=== PATIENT | male | born 1970 | race Caucasian/White ===

== ENCOUNTER 2021-01-11 07:45 | Observation (INO) | payer BC ==
--- NOTE | 2021-01-11 09:07 | ER ---
Nurse's Notes [facility] Name: Ty Delatorre Age: 50 yrs Sex: Male : 1970 Arrival Date: 01/11/2021 Time: 07:49 Bed 14 Private MD: Diagnosis: Cellulitis of left lower limb Presentation: 01/11 08:46 Chief complaint: Patient states: left leg swelling and redness since Sunday, was seen iw at [facility] on Sunday and given IV abx and sent home with bactrim and amoxicillin, leg looks worse now, US was neg for DVT at [facility]. Coronavirus screen: At this time, the client does not indicate any symptoms associated with coronavirus-19. Ebola Screen: Patient negative for fever greater than or equal to 101.5 degrees Fahrenheit, and additional compatible Ebola Virus Disease symptoms Patient denies exposure to infectious person. Patient denies travel to an Ebola-affected area in the 21 days before illness onset. No symptoms or risks identified at this time. Initial Sepsis Screen: Does the patient meet any 2 criteria? No. Patient's initial sepsis screen is negative. Does the patient have a suspected source of infection? No. Patient's initial sepsis screen is negative. Risk Assessment: Do you want to hurt yourself or someone else? Patient reports no desire to harm self or others. Onset of symptoms was January 08, 2021. 08:46 Method Of Arrival: Ambulatory iw 08:46 Acuity: JOSE 3 iw Historical: - Allergies: 08:49 No Known Allergies; iw - Home Meds: 08:49 Bystolic oral [Active]; Accupril Oral [Active]; pravastatin oral [Active]; iw - PMHx: 08:49 Hypertensive disorder; iw - PSHx: 08:49 knee; iw Screenin:07 Abuse screen: Denies threats or abuse. Nutritional screening: No deficits noted. 6 Tuberculosis screening: No symptoms or risk factors identified. Fall Risk None identified. Assessment: 09:03 General: Appears in no apparent distress. comfortable, obese, well developed, well 6 nourished, Behavior is calm, cooperative. Pain: Denies pain. Derm: Wound noted left nelson Pt reports after receiving third Covid shot. Pt woke up with redness swelling and pain to lle starting 4 days ago. Pt has been on antibiotics and antiinflammatories but have not decreased s/s. 10:36 Reassessment: No changes from previously documented assessment. jh6 12:00 Reassessment: Patient and/or family updated on plan of care and expected duration. Pain jh6 level reassessed. Patient denies pain at this time. Patient states feeling better. redness and swelling still noted to l lower ext but no pain when asked.. Vital Signs: 09:00 BP 110 / 72; Pulse 78; Resp 16; Temp 98.2; Pulse Ox 99% on R/A; kj1 10:36 BP 110 / 82; Pulse 76; Resp 17; Temp 98.0(O); Pulse Ox 100% ; Pain 0/10; jh6 12:00 BP 112 / 80; Pulse 77; Resp 17; Pulse Ox 100% ; jh6 14:05 BP 116 / 54; Pulse 74; Resp 17; Temp 97.8; Pulse Ox 99% ; Pain 0/10; jh6 ED Course: 07:49 Patient arrived in ED. rg4 07:53 Raulito Downs MD is Attending Physician. kdr 08:49 Triage completed. iw 08:55 Adriane Nichols, MARGARITO is Primary Nurse. jh6 09:04 Ernie Madrid is Hospitalizing Provider. kdr 09:06 Patient has correct armband on for positive identification. Bed in low position. Call [facility] light in reach. Side rails up X 1. 09:07 No provider procedures requiring assistance completed. jh6 09:24 Inserted saline lock: 20 gauge in left forearm, using aseptic technique. tp1 09:28 Patient moved to radiology. jh6 09:28 Inserted saline lock: 20 gauge in left forearm, using aseptic technique. jh6 09:28 US Extremity Venous Unilateral Ltd Sent. jh6 09:29 Blood Culture Adult (2) Sent. jh6 09:29 Chem 7 Sent. jh6 09:29 CBC with Diff Sent. jh6 09:30 US Extremity Venous Unilateral Ltd In Process Unspecified. EDMS 10:32 SARS-COV-2 RT PCR (Document "Date of Onset" if Symptomatic) Sent. jh6 Administered Medications: 13:54 Discontinued: NS 0.9% 500 ml IV at bolus once jh6 09:45 Drug: Zofran (Ondansetron) 4 mg Route: IVP; Site: left forearm; jh6 09:45 Drug: Cefepime 2 grams Route: IVPB; Rate: 200 ml/hr; Infused Over: 30 mins; Site: left [facility] forearm; 10:34 Follow up: Response: No adverse reaction [facility] 12:00 Follow up: Response: No adverse reaction [facility] 09:50 Drug: NS 0.9% 500 ml Route: IV; Rate: bolus; Site: left forearm; [facility] 10:33 Follow up: IV Status: Completed infusion; IV Intake: 500ml [facility] 13:54 Follow up: IV Status: Completed infusion; IV Intake: 500ml [facility] 10:25 Drug: vancoMYCIN 1.5 grams Route: IVPB; Rate: calculated rate; Site: left forearm; [facility] 11:44 Drug: Pepcid (famotidine) 20 mg Route: IVP; Site: left forearm; [facility] 13:54 Follow up: Response: No adverse reaction [facility] Intake: 10:33 IV: 500ml; Total: 500ml. [facility] 13:54 IV: 500ml; Total: 1000ml. [facility] Outcome: 09:05 Decision to Hospitalize by Provider. [facility] 15:07 Patient left the ED. aa5 Signatures: Dispatcher [employer] EDMS Raulito Downs MD MD kdr Williams, Irene, RN RN iw Calderon, Audri, RN RN yemi5 Mahnaz Hutchison Kandis kj1 Adriane Nichols RN RN jh6 Teresa Willis tp1
--- NOTE | 2021-01-11 09:07 | EDPHYS ---
Physician Documentation [facility] Name: Ty Delatorre Age: 50 yrs Sex: Male : 1970 Arrival Date: 01/11/2021 Time: 07:49 Bed 14 Private MD: ED Physician Raulito Downs HPI: 01/11 08:52 This 50 yrs old Male presents to ER via Ambulatory with complaints of Leg kdr Swelling. 08:52 The patient presents with pain, that is acute, swelling, tenderness, Erythema and kdr warmth to the calf circumferentially. The complaints affect the lateral aspect of left calf, left lateral ankle, left calf, left Achilles, medial aspect of left calf, left medial ankle and left nelson. Context: The problem was sustained at home, resulted from an unknown cause, the patient can fully bear weight, the patient is able to ambulate. Onset: The symptoms/episode began/occurred gradually, 3 day(s) ago. Modifying factors: The symptoms are alleviated by nothing. the symptoms are aggravated by movement, weight bearing. Associated signs and symptoms: Pertinent positives: calf tenderness, fever, nausea, swelling, warmth. Treatment prior to arrival includes: Patient was seen at [facility] on Sunday and given antibiotics (amoxicillin and Bactrim). Since then the erythema and warmth and swelling have worsened.. Severity of symptoms: At their worst the symptoms were mild, moderate, just prior to arrival, in the emergency department the symptoms are unchanged. The patient has not experienced similar symptoms in the past. The patient has been recently seen by a physician: [facility]. Historical: - Allergies: 08:49 No Known Allergies; iw - Home Meds: 08:49 Bystolic oral [Active]; Accupril Oral [Active]; pravastatin oral [Active]; iw - PMHx: 08:49 Hypertensive disorder; iw - PSHx: 08:49 knee; iw ROS: 08:52 Constitutional: Negative for weight loss -he has had fever and chills to 103 over the kdr weekend Eyes: Negative for injury, pain, redness, and discharge, Neck: Negative for injury, pain, and swelling, Cardiovascular: Negative for chest pain, palpitations, and edema, Respiratory: Negative for shortness of breath, cough, wheezing, and pleuritic chest pain, Back: Negative for injury and pain, : Negative for injury, bleeding, discharge, and swelling, MS/Extremity: Negative for injury and deformity, Neuro: Negative for headache, weakness, numbness, tingling, and seizure activity. Psych: Negative for depression, anxiety, suicide ideation, homicidal ideation, and hallucinations, Allergy/Immunology: Negative for hives, rash, and allergies, Endocrine: Negative for neck swelling, polydipsia, polyuria, polyphagia, and marked weight changes, Hematologic/Lymphatic: Negative for swollen nodes, abnormal bleeding, and unusual bruising. 08:52 Abdomen/GI: Positive for nausea, Negative for vomiting, diarrhea, constipation, abdominal cramps, abdominal distension, black/tarry stool, rectal pain, rectal bleeding, bowel incontinence. Exam: 08:52 Constitutional: This is a well developed, well nourished patient who is awake, alert, kdr and in no acute distress. Head/Face: Normocephalic, atraumatic. Eyes: Pupils equal round and reactive to light, extra-ocular motions intact. Lids and lashes normal. Conjunctiva and sclera are non-icteric and not injected. Cornea within normal limits. Periorbital areas with no swelling, redness, or edema. Chest/axilla: Normal chest wall appearance and motion. Nontender with no deformity. No lesions are appreciated. 08:52 Skin: cellulitis, that is moderate, confluent, well demarcated, on the lateral aspect of left calf, left calf, medial aspect of left calf and left nelson. Vital Signs: 09:00 BP 110 / 72; Pulse 78; Resp 16; Temp 98.2; Pulse Ox 99% on R/A; kj1 10:36 BP 110 / 82; Pulse 76; Resp 17; Temp 98.0(O); Pulse Ox 100% ; Pain 0/10; jh6 12:00 BP 112 / 80; Pulse 77; Resp 17; Pulse Ox 100% ; jh6 14:05 BP 116 / 54; Pulse 74; Resp 17; Temp 97.8; Pulse Ox 99% ; Pain 0/10; jh6 MDM: 08:52 Data reviewed: vital signs, nurses notes, lab test result(s), radiologic studies. kdr Counseling: I had a detailed discussion with the patient and/or guardian regarding: the historical points, exam findings, and any diagnostic results supporting the discharge/admit diagnosis, lab results, radiology results, the need for further work-up and treatment in the hospital. 09:05 Patient medically screened. [facility] 01/11 08:51 Order name: CBC with Diff; Complete Time: 09:50 kdr 01/11 08:51 Order name: Chem 7; Complete Time: 09:50 kdr 01/11 08:51 Order name: Blood Culture Adult (2) kdr 01/11 09:12 Order name: SARS-COV-2 RT PCR (Document "Date of Onset" if Symptomatic) 01/11 11:42 Order name: C-Reactive Protein EDLA 01/11 11:42 Order name: Procalcitonin EDLA 01/11 08:51 Order name: US Extremity Venous Unilateral Ltd; Complete Time: 10:47 [facility] 01/11 11:39 Order name: CONS Physician Consult EDLA 01/11 11:42 Order name: Sedimentation Rate, [place] EDLA Administered Medications: 13:54 Discontinued: NS 0.9% 500 ml IV at bolus once [facility] 09:45 Drug: Zofran (Ondansetron) 4 mg Route: IVP; Site: left forearm; [facility] 09:45 Drug: Cefepime 2 grams Route: IVPB; Rate: 200 ml/hr; Infused Over: 30 mins; Site: left [facility] forearm; 10:34 Follow up: Response: No adverse reaction [facility] 12:00 Follow up: Response: No adverse reaction [facility] 09:50 Drug: NS 0.9% 500 ml Route: IV; Rate: bolus; Site: left forearm; [facility] 10:33 Follow up: IV Status: Completed infusion; IV Intake: 500ml [facility] 13:54 Follow up: IV Status: Completed infusion; IV Intake: 500ml [facility] 10:25 Drug: vancoMYCIN 1.5 grams Route: IVPB; Rate: calculated rate; Site: left forearm; [facility] 11:44 Drug: Pepcid (famotidine) 20 mg Route: IVP; Site: left forearm; [facility] 13:54 Follow up: Response: No adverse reaction [facility] Disposition Summary: 01/11/21 09:05 Hospitalization Ordered Hospitalization Status: Inpatient Admission kdr Provider: Ernie Madrid Location: Telemetry/MedSurg (Inpatient) kdr Condition: Fair kdr Problem: an ongoing problem kdr Symptoms: are unchanged kdr Bed/Room Type: Standard kdr Room Assignment: [facility](01/11/21 13:19) dw Diagnosis - Cellulitis of left lower limb kdr Forms: - Medication Reconciliation Form kdr - SBAR form kdr Signatures: Dispatcher [employer] Veronika Vu RN RN dw Raulito Downs MD MD kdr Williams, Irene, RN RN Adriane Nichols RN RN jh6 Corrections: (The following items were deleted from the chart) 13:19 09:05 kdr dw
[2021-01-11] MEDS ORDERED: CEFEPIME 1 GM/VIAL ONE (09:10)
[2021-01-11] MEDS ORDERED: ONDANSETRON 4 MG/2 ML VIAL ONE (09:10)
[2021-01-11] MEDS ORDERED: NA CHLORIDE 0.9% 250 ML ONE (09:11)
[2021-01-11] MEDS ORDERED: VANCOMYCIN 1 GM/VIAL ONE (09:11)
[2021-01-11] MEDS ORDERED: NA CHLORIDE 0.9% 100 ML ONE (09:11)
[2021-01-11] MEDS ORDERED: NA CHLORIDE 0.9% 500 ML ONE (09:11)
[2021-01-11 09:30] LABS: Absolute Lymphocytes (CBC) 1.1 K/uL (0.7-4.9); Basophils % 0.4 % (0-1.3); Hematocrit 39.1 % (39.6-49.0); Lymphocytes % 11.6 % (15.3-44.8); MPV 8.6 fL (7.6-11.3); RBC Red Blood Cell Count 4.29 M/uL (4.33-5.43)
[2021-01-11 09:48] LABS: Potassium 3.7 mmol/L (3.5-5.1)
--- NOTE | 2021-01-11 10:03 | RAD REPORT ---
EXAM DESCRIPTION: USExtremity Venous Uni Ltd01/11/2021 9:30 am CLINICAL HISTORY: left leg pain and swelling. COMPARISON: None. FINDINGS: Left common femoral, superficial femoral, popliteal and posterior tibial veins are compre ssible and demonstrate augmentation. Doppler demonstrates good flow. IMPRESSION: No evidence of deep venous thrombosis involving the left lower extremity.
[2021-01-11] MEDS ORDERED: FAMOTIDINE 20 MG/2 ML VIAL IV ONE (11:38)
--- NOTE | 2021-01-11 11:41 | P.HP ---
Certification for Inpatient Patient admitted to: Inpatient With expected LOS: >2 Midnights Practitioner: I am a practitioner with admitting privileges, knowledge of patient current condition, hospital course, and medical plan of care. Services: Services provided to patient in accordance with Admission requirements found in Title 42 Section 412.3 of the Code of Federal Regulations Patient History Date of Service: 01/11/21 Reason for admission: LLE cellulitis, failed outpatient therapy History of Present Illness: 50-year-old male, PMH: Hypertension, hypertriglyceridemia presents to ED due to worsening of his left lower extremity cellulitis. He first noticed some redness and pain of his left leg ~3-4 days ago. He presented to [facility], was given IV vancomycin & "antibiotic pills", discharged home with Augmentin and Bactrim. Patient received antibiotics for 48 hours, still had worsening of his swelling, redness, and pain. Pain is described as a dull ache most times, but feels like his foot/leg is on fire when he moves. He reports fever at home to 103.5. Both the fever and the cellulitis occurred the day following his booster COVID vaccine. In the ED, patient is without leukocytosis, afebrile at this time, with some noticeable discomfort, and significant erythema and swelling of his left lower extremity. Venous Doppler was negative for DVT. Patient is admitted for treatment for failed outpatient therapy of cellulitis. Allergies No Known Allergies Allergy (Unverified 01/11/21 12:34) Home Medications: Amoxicillin/Potassium Clav [Amox-Clav 875-125 mg Tablet] 1 tab PO Q12H 01/11/21 Aspirin [Aspirin EC] 1 tab PO DAILY 01/11/21 Naproxen Sodium 1 tab PO Q12H PRN 01/11/21 Nebivolol HCl [Bystolic*] 1 tab PO DAILY 01/11/21 [place]-3 Acid Ethyl Esters [Lovaza] 4 gm PO DAILY 01/11/21 Pravastatin Sodium 1 tab PO DAILY 01/11/21 Quinapril HCl [Accupril] 1 tab PO DAILY 01/11/21 Smz./Tmp. [Bactrim Ds 800 MG/160 MG*] 1 tab PO Q12H 01/11/21 - Past Medical/Surgical History -: Hypertension -: Hypertriglyceridemia Past Surgical History: Patient denies surgical history - Family History Father -: Diabetes - Social History Smoking Status: Never smoker Alcohol use: Yes Place of Residence: Home Review of Systems 10-point ROS is otherwise unremarkable Physical Examination - Physical Exam General: Alert, Oriented x3, Other (Appears somewhat uncomfortable) HEENT: PERRLA, Mucous membr. moist/pink, Sclerae nonicteric Neck: No LAD Respiratory: Clear to auscultation bilaterally, Normal air movement Cardiovascular: Regular rate/rhythm, No murmurs, Edema (1+ LLE) Gastrointestinal: Soft and benign, Non-distended, No tenderness Integumentary: Tenderness/swelling (LLE: dorsum of foot to knee), Erythema Neurological: Normal speech, Normal affect - Studies Laboratory Data (last 24 hrs) 01/11/21 09:15: Sodium 138, Potassium 3.7, BUN 23 H, Creatinine 1.80 H, Glucose 134 H 01/11/21 09:15: WBC 9.10, Hgb 13.4 L, Hct 39.1 L, Plt Count 211 Assessment and Plan - Advance Directives Does patient have a Living Will: No Does patient have a Durable POA for Healthcare: No Physician Review Additional Text: Problem List LLE Cellulitis HTN Hypertriglyceridemia Suspect GERSON on CKD, unknown stage Patient failed outpatient therapy with Augmentin and Bactrim. Did receive 1 dose of IV vancomycin at [facility] ER 2 days ago. Patient given vancomycin and cefepime in the ER here Patient does not appear septic, but with impressive erythema and tenderness. No significant anterior left lower extremity. Admit to hospital for IV antibiotics given that he failed outpatient therapy Infectious disease consulted, recommends IV clindamycin Check CRP/procalcitonin Monitor labs Creatinine 1.8, patient states he has been told his creatinine is slightly above normal but unsure of the level Reports his urine has been slightly darker lately Suspect patient is volume depleted, start IVF repeat BMP in AM Blood cultures obtained in ED, will follow VTE: lovenox Code: full Dispo: anticipate dc home in ~48hrs Time Spent Managing Pts Care (In Minutes): 60
[2021-01-11] MEDS ORDERED: TRAMADOL HCL 50 MG TAB PO PRN (12:34)
[2021-01-11] MEDS ORDERED: ACETAMINOPHEN 500 MG TAB PO PRN (12:34)
--- NOTE | 2021-01-11 12:52 | P.CNS ---
Date of Consult: 01/11/21 History of Present Illness: Patient is a 50-year-old male with a past medical history of hypertension hyperlipidemia who presented to the emergency department secondary to left lower extremity swelling erythema and pain. Patient states that this past Sunday he received his moderna booster shot and Sunday morning he experienced fevers, chills, malaise, and noted left lower lower extremity redness and swelling. On Sunday he went to [facility] emergency room where he was given a single dose of vancomycin in prescribed oral Bactrim and Augmentin. Patient took 4 doses of these oral antibiotics however did not see resolution of symptoms and as such presented to the emergency department. Patient denies any recent trauma to the area, and being outdoors, going to the beach, or noticing any skin lesions/scrapes. Patient states that this is never happened before. He states pain is worse in the morning an with ambulation and gets better when he sits and rests. Currently denies nausea/vomiting/diarrhea/shortness breast/chest pain. He reports pain to left lower extremity worse with ambulation. Allergies No Known Allergies Allergy (Unverified 01/11/21 12:34) Review of Systems 10-point ROS is otherwise unremarkable Physical Examination General: Alert, In no apparent distress, Oriented x3 HEENT: Atraumatic, Normocephalic Neck: Supple, 2+ carotid pulse no bruit Respiratory: Clear to auscultation bilaterally, Normal air movement Cardiovascular: No edema, Normal pulses, Regular rate/rhythm Gastrointestinal: Normal bowel sounds, Soft and benign Integumentary: Other (Left lower extremity erythema and swelling. Erythema located on anterior aspect of left nelson.) Laboratory Data (last 24 hrs) 01/11/21 09:15: Sodium 138, Potassium 3.7, BUN 23 H, Creatinine 1.80 H, Glucose 134 H 01/11/21 09:15: WBC 9.10, Hgb 13.4 L, Hct 39.1 L, Plt Count 211 Conclusions/Impression: Assessment/plan Left lower extremity cellulitis Patient failed outpatient treatment with oral Augmentin and Bactrim. Recommend starting IV clindamycin as well as a probiotic. Also recommend keeping the leg elevated. Venous Doppler negative for DVT. Hypertension Hyperlipidemia Medical management per primary team Continue monitor CBC and BMP Plan of care discussed with Dr. Greenwood Thank you for consultation
[2021-01-11 14:56] VITALS: BMI 38.0
[2021-01-11] MEDS: NA CHLORIDE 0.9% 1,000 ML IV SCH ×2 (17:01→20:28)
[2021-01-11] MEDS: CLINDAMYCIN INJ 600 MG in NA CHLORIDE 0.9% 50 ML IV SCH (17:04)
[2021-01-11] MEDS: LACTOBACILLUS/ACIDOPHILUS TAB PO SCH (20:28)
[2021-01-11] MEDS ORDERED: ATORVASTATIN 10 MG TAB PO SCH (21:00)
[2021-01-12] MEDS: CLINDAMYCIN INJ 600 MG in NA CHLORIDE 0.9% 50 ML IV SCH ×2 (00:41→08:59)
[2021-01-12 04:14] LABS: Absolute Lymphocytes (CBC) 1.2 K/uL (0.7-4.9); Basophils % 0.4 % (0-1.3); Hematocrit 35.9 % (39.6-49.0); Lymphocytes % 16.1 % (15.3-44.8); MPV 8.5 fL (7.6-11.3); RBC Red Blood Cell Count 3.89 M/uL (4.33-5.43)
[2021-01-12 04:40] LABS: Albumin 2.6 g/dL (3.4-5.0); Bilirubin Total 0.4 mg/dL (0.2-1.0); Magnesium 2.4 mg/dL (1.8-2.4); Potassium 3.9 mmol/L (3.5-5.1); Protein, Total 6.7 g/dL (6.4-8.2)
[2021-01-12 08:01] VITALS: BP 128/63; TEMP 97.6
[2021-01-12] MEDS: NA CHLORIDE 0.9% 1,000 ML IV SCH (08:34)
[2021-01-12] MEDS: LACTOBACILLUS/ACIDOPHILUS TAB PO SCH (08:59)
[2021-01-12] MEDS ORDERED: NEBIVOLOL HCL 5 MG TAB PO SCH (09:00)
[2021-01-12] MEDS ORDERED: HOME MED 1 EA UNK (Pravastatin Sodium [Pravastatin Sodium] 40 MG Tablet) PO SCH (09:00)
[2021-01-12] MEDS ORDERED: POTASSIUM CL SA 10 MEQ TAB PO ONE (09:00)
[2021-01-12] MEDS ORDERED: ASPIRIN EC 81 MG TAB PO SCH (09:00)
[2021-01-12] MEDS ORDERED: ENOXAPARIN 40 MG/0.4 ML SQ SCH (09:00)
[2021-01-12 09:59] VITALS: O2SAT 97
--- NOTE | 2021-01-12 12:09 | P.PN ---
Subjective Date of Service: 01/12/21 Chief Complaint: LLE cellulitis, failed outpatient therapy Patient seen examined at bedside, doing well with no acute complaints. Tolerating antibiotics well with no nausea/vomiting/diarrhea. Left lower extremity cellulitis improving. Review of Systems 10-point ROS is otherwise unremarkable Physical Examination - Vital Signs Temperature: 97.6 F Blood Pressure: 128/63 Pulse: 82 Respirations: 18 Pulse Ox (%): 94 - Studies Laboratory Last Values WBC 9.10 K/uL (4.3-10.9) 01/11/21 09:15 RBC 4.29 M/uL (4.33-5.43) L 01/11/21 09:15 Hgb 13.4 g/dL (13.6-17.9) L 01/11/21 09:15 Hct 39.1 % (39.6-49.0) L 01/11/21 09:15 MCV 91.3 fL (80-100) 01/11/21 09:15 MCH 31.2 pg (27.0-35.0) 01/11/21 09:15 MCHC 34.2 g/dL (32.0-36.0) 01/11/21 09:15 RDW 13.5 % (12.1-15.2) 01/11/21 09:15 Plt Count 211 K/uL (152-406) 01/11/21 09:15 MPV 8.6 fL (7.6-11.3) 01/11/21 09:15 Neutrophils % 79.1 % (41.7-73.7) H 01/11/21 09:15 Lymphocytes % 11.6 % (15.3-44.8) L 01/11/21 09:15 Monocytes % 6.8 % (3.3-12.3) 01/11/21 09:15 Eosinophils % 2.1 % (0-4.4) 01/11/21 09:15 Basophils % 0.4 % (0-1.3) 01/11/21 09:15 Absolute Neutrophils 7.2 K/uL (1.8-8.0) 01/11/21 09:15 Absolute Lymphocytes 1.1 K/uL (0.7-4.9) 01/11/21 09:15 Absolute Monocytes 0.6 K/uL (0.1-1.3) 01/11/21 09:15 Absolute Eosinophils 0.2 K/uL (0-0.5) 01/11/21 09:15 Absolute Basophils 0.0 K/uL (0-0.5) 01/11/21 09:15 ESR Westergren 80 mm/HR (0-15) H 01/11/21 09:15 Sodium 138 mmol/L (136-145) 01/11/21 09:15 Potassium 3.7 mmol/L (3.5-5.1) 01/11/21 09:15 Chloride 107 mmol/L (98-107) 01/11/21 09:15 Carbon Dioxide 22 mmol/L (21-32) 01/11/21 09:15 BUN 23 mg/dL (7-18) H 01/11/21 09:15 Creatinine 1.80 mg/dL (0.55-1.3) H 01/11/21 09:15 Estimated GFR 40 mL/min (=/>90) L 01/11/21 09:15 Glucose 134 mg/dL (74-106) H 01/11/21 09:15 Calcium 9.1 mg/dL (8.5-10.1) 01/11/21 09:15 C-Reactive Protein 167.00 mg/L (<3.00) H 01/11/21 09:15 Procalcitonin 0.61 ng/mL (<0.050) H 01/11/21 09:15 SARS-CoV-2 Rap RNA(RT-PCR) Negative (NEGATIVE) 01/11/21 09:50 Assessment And Plan - Plan Physical exam: General: Alert, In no apparent distress, Oriented x3 HEENT: Atraumatic, Normocephalic Neck: Supple, 2+ carotid pulse no bruit Respiratory: Clear to auscultation bilaterally, Normal air movement Cardiovascular: No edema, Normal pulses, Regular rate/rhythm Gastrointestinal: Normal bowel sounds, Soft and benign Integumentary: Other (Left lower extremity erythema and swelling. Erythema located on anterior aspect of left nelson.) Conclusions/Impression: Assessment/plan Left lower extremity cellulitis Patient failed outpatient treatment with oral Augmentin and Bactrim. Recommend starting IV clindamycin as well as a probiotic. Also recommend keeping the leg elevated. Can send home on oral clindamycin for 7 days. Venous Doppler negative for DVT. Hypertension Hyperlipidemia Medical management per primary team Continue monitor CBC and BMP Plan of care discussed with Dr. Greenwood Thank you for consultation Physician Review Additional Text: Problem List LLE Cellulitis HTN Hypertriglyceridemia Suspect GERSON on CKD, unknown stage Patient failed outpatient therapy with Augmentin and Bactrim. Did receive 1 dose of IV vancomycin at [facility] 2 days ago. Patient given vancomycin and cefepime in the ER here Patient does not appear septic, but with impressive erythema and tenderness. No significant anterior left lower extremity. Admit to hospital for IV antibiotics given that he failed outpatient therapy Infectious disease consulted, recommends IV clindamycin Check CRP/procalcitonin Monitor labs Creatinine 1.8, patient states he has been told his creatinine is slightly above normal but unsure of the level Reports his urine has been slightly darker lately Suspect patient is volume depleted, start IVF repeat BMP in AM Blood cultures obtained in ED, will follow VTE: lovenox Code: full Dispo: anticipate dc home in ~48hrs
--- NOTE | 2021-01-12 16:39 | P.DS ---
Admission Date: 01/11/21 Discharge Date: 01/12/21 Disposition: ROUTINE DISCHARGE Discharge Condition: GOOD Reason for Admission: LLE cellulitis, failed outpatient therapy Consultations: Infectious disease - Dr. Greenwood Procedures: Left Venous U/S (01/11): FINDINGS: Left common femoral, superficial femoral, popliteal and posterior tibial veins are compressible and demonstrate augmentation. Doppler demonstrates good flow. IMPRESSION: No evidence of deep venous thrombosis involving the left lower extremity. Problem List LLE Cellulitis, failed outpatient therapy HTN Hypertriglyceridemia GERSON on CKD3 Brief History of Present Illness: 50-year-old male, PMH: Hypertension, hypertriglyceridemia presents to ED due to worsening of his left lower extremity cellulitis. He first noticed some redness and pain of his left leg ~3-4 days ago. He presented to stand-alone ER, was given IV vancomycin & "antibiotic pills", discharged home with Augmentin and Bactrim. Patient received antibiotics for 48 hours, still had worsening of his swelling, redness, and pain. Pain is described as a dull ache most times, but feels like his foot/leg is on fire when he moves. He reports fever at home to 103.5. Both the fever and the cellulitis occurred the day following his booster COVID vaccine. In the ED, patient is without leukocytosis, afebrile at this time, with some noticeable discomfort, and significant erythema and swelling of his left lower extremity. Venous Doppler was negative for DVT. Patient is admitted for treatment for failed outpatient therapy of cellulitis. Hospital Course: Patient received IV vancomycin and cefepime in the ER. Infectious disease was consulted. Recommended monotherapy with IV clindamycin. Patient had improvement of his swelling and erythema overnight and reported feeling better. He is able to ambulate with less pain. His renal function also improved overnight with some IV fluids, back to his baseline. He was discharged home to complete 7-day treatment with clindamycin per ID recommendations. Follow-up with PCP within 1 week Vital Signs/Physical Exam: Physical Exam General: Alert, Oriented x3, NAD HEENT: Mucous membr. moist/pink, Sclerae nonicteric Neck: No LAD Respiratory: Clear to auscultation bilaterally, Normal air movement Cardiovascular: Regular rate/rhythm, No murmurs, Edema (1+ LLE) Gastrointestinal: Soft and benign, Non-distended, No tenderness Integumentary: Tenderness/swelling, Erythema just above ankle to knee on anterior lower leg Neurological: Normal speech, Normal affect Temp Pulse Resp BP Pulse Ox 97.6 F 82 18 128/63 94 01/12/21 12:10 01/12/21 12:10 01/12/21 12:10 01/12/21 12:10 01/12/21 12:10 Laboratory Data at Discharge: WBC 7.50 K/uL (4.3-10.9) D 01/12/21 03:17 Hgb 12.0 g/dL (13.6-17.9) L 01/12/21 03:17 Hct 35.9 % (39.6-49.0) L 01/12/21 03:17 Plt Count 191 K/uL (152-406) 01/12/21 03:17 Sodium 141 mmol/L (136-145) 01/12/21 03:17 Potassium 3.9 mmol/L (3.5-5.1) 01/12/21 03:17 BUN 20 mg/dL (7-18) H 01/12/21 03:17 Creatinine 1.42 mg/dL (0.55-1.3) H 01/12/21 03:17 Glucose 107 mg/dL (74-106) H 01/12/21 03:17 Magnesium 2.4 mg/dL (1.8-2.4) 01/12/21 03:17 Total Bilirubin 0.4 mg/dL (0.2-1.0) 01/12/21 03:17 AST 25 U/L (15-37) 01/12/21 03:17 ALT 50 U/L (12-78) 01/12/21 03:17 Alkaline Phosphatase 63 U/L (45-117) 01/12/21 03:17 Home Medications: Aspirin [Aspirin EC] 1 tab PO DAILY 01/11/21 Nebivolol HCl [Bystolic*] 1 tab PO DAILY 01/11/21 [place]-3 Acid Ethyl Esters [Lovaza] 4 gm PO DAILY 01/11/21 Pravastatin Sodium 1 tab PO DAILY 01/11/21 Quinapril HCl [Accupril] 1 tab PO DAILY 01/11/21 Ondansetron [Zofran] 4 mg PO Q8H PRN #10 tab 11/24/21 clindamycin HCL [Clindamycin HCl] 300 mg PO QID 7 Days #28 capsule 01/12/21 New Medications: clindamycin HCL [Clindamycin HCl] 300 mg PO QID 7 Days #28 capsule Ondansetron [Zofran] 4 mg PO Q8H PRN #10 tab PRN Reason: Nausea / Vomiting Physician Discharge Instructions: You have cellulitis of your left leg. This improved with IV antibiotics. Infectious Disease team was consulted and recommended discharge home on Clindamycin for 7 days. Follow up with your PCP in 3-5 days. Recommend rest and elevation of the leg as much as possible in next few days. Ultrasound did not reveal any blood clot in your leg. Diet: AHA Activity: Ad eliana Followup: Anette Connelly MD [Primary Care Provider] - Time spent managing pt's care (in minutes): 45
== END 2021-01-12 12:49 | disposition home or self-care (01) ==
LOC: ER 07:45 → INTOOBSV 11:38 → ERHOLD 11:38 → 4TH 14:35
PROVIDERS: ADMIT Hospitalist; ATTEND Hospitalist
DX: L03.116 Cellulitis of left lower limb (principal); I12.9 Hypertensive chronic kidney disease with stage 1 through stage 4 chronic kidney disease, or unspecified chronic kidney disease; N18.30 Chronic kidney disease, stage 3 unspecified; N17.9 Acute kidney failure, unspecified; E78.1 Pure hyperglyceridemia; Z20.822 Contact with and (suspected) exposure to COVID-19
CPT/HCPCS: 96361; 87040 ×2; 85025 ×2; 80048; 36415 ×2; 83735; 85652; 80053; 84145; 86140 ×2; 93971; 94760 ×3; 96375; 96374; 99284; U0003; J1650; J3370; J7050; J7040; J7030 ×3; J2405; J0692; G0378 ×3